=== PATIENT | male | born 1945 | race Caucasian/White ===

== ENCOUNTER → 2018-08-12 18:14 | Outpatient (REF) | payer MEDICARE, OTHER, SELFPAY | LOC: LAB 18:14 | PROVIDERS: Family Provider Student in an Organized Health Care Education/Training Program; PCP Student in an Organized Health Care Education/Training Program; Visit Provider Dermatology | DX: L02.92 Furuncle, unspecified (principal); L81.4 Other melanin hyperpigmentation | CPT/HCPCS: 87070; 87075; 87077; 87147; 87205 ==

== ENCOUNTER → 2021-07-28 13:06 | Outpatient (CLI) | payer MEDICARE, SELFPAY ==
--- NOTE | 2021-07-28 | DI.US.S_ITS ---
PROCEDURE: US EXTREMITY NONVASC LOWER LT INDICATIONS: ASPIRATION OF BAKERS CYST TECHNIQUE: Real-time scanning was performed of the both posterior knees , with image documentation. COMPARISON: Outside Facility, RG, US LOWER EXTREMITY VASCULAR BILATERAL, 04/19/2021, 13:42. FINDINGS: Ultrasound was performed of popliteal fossas bilaterally. No Salvador cysts are identified. IMPRESSION: No Bakers cysts posterior to the knees are identified on the the day's exam on either sides. Dictated by: Bassem Galan M.D. on 07/28/2021 at 14:21 Approved by: Bassem Galan M.D. on 07/28/2021 at 14:23
== END ==
PROVIDERS: Family Provider Student in an Organized Health Care Education/Training Program; PCP Student in an Organized Health Care Education/Training Program; Referring Provider Orthopaedic Surgery; Visit Provider Orthopaedic Surgery
DX: M71.22 Synovial cyst of popliteal space [Baker], left knee (principal); M17.12 Unilateral primary osteoarthritis, left knee
CPT/HCPCS: 76882